=== PATIENT | male | born 1965 | race Caucasian/White ===

== ENCOUNTER 2017-06-15 18:47 | Emergency (ER) | payer OTHER ==
--- NOTE | 2017-06-15 19:59 | DIAGNOSTIC IMAGING REPORT ---
PROCEDURE: XR ANKLE 3 OR 4 VIEWS - LEFT INDICATION: TRAUMA/INJURY TECHNIQUE: Four views of the left ankle. COMPARISON: None. FINDINGS: Normal mineralization. No fractures. Ankle mortise intact. Normal osseous alignment. Mild degenerative changes at the anterior posterior tibiotalar joint and posterior to the posterior subtalar joint. Small plantar calcaneal spur. Small tibiotalar joint effusion. No suspicious soft-tissue calcification or radiodense foreign bodies. Achilles tendon appears grossly normal. Mild lateral periarticular soft tissue swelling. IMPRESSION: 1. Mild lateral soft tissue swelling and tibiotalar joint effusion. No underlying fracture.
--- NOTE | 2017-06-15 20:24 | ED NURSING NOTES ---
Clinical Report - Nurses [facility] [address] [place] [address] 06/15/2017 18:47 Patient: ELMER JASMINE TRIAGE Triage time 18:56 Jun 15 2017. Chief Complaint: INJURY TO ANKLE. INJURY TO THE LEFT ANKLE. Alert. No acute distress. SEPSIS SCREEN: Sepsis Screen. Negative (no infection suspected/documented). --19:00 Gt Samaniego R.N. 18:56 06/15/17. BP: 144/84. HR: 70. RR: 17. O2 saturation: 100%. Temp: 98.1 F. Pain level now: 08/11. --19:00 Gt Samaniego R.N. Weight: 95.2 kg stated. Height/Length: 68 inches Per Patient. BMI: 31.9. --18:58 tG Samaniego R.N. Medications Hydrochlorothiazide Oral. --19:02 Gt Samaniego R.N. Omeprazole Oral. --19:02 Gt Samaniego R.N. Niacin Oral. --19:02 Gt Samaniego R.N. Vitamin E Complex Oral. --19:03 Gt Samaniego R.N. Vitamin A Oral. --19:03 Gt Samaniego R.N. Atenolol Oral. --19:03 Gt Samaniego R.N. Atorvastatin Calcium Oral. --19:03 Gt Samaniego R.N. Allergies None. --19:03 Gt Samaniego R.N. Medication/allergy information source: the patient. --19:00 Gt Samaniego R.N. History Arrived by private vehicle. Historian: patient. Accompanied by family. This occurred today. He has had trouble walking. Treatment [place]: Ice and took ibuprofen. PAST MEDICAL HX: Tetanus status: up-to-date. Immunizations: up-to-date. SOCIAL HX: Smoker- current status unknown. Alcohol use. No drug use. No infectious disease exposure. ABUSE ASSESSMENT: No report of abuse. SELF HARM ASSESSMENT: A self harm assessment was performed. The patient answered "no" to the question "Do you have thoughts of harming or killing yourself?". FALL RISK ASSESSMENT: Fall risk assessment completed. No fall risk identified. NUTRITIONAL RISK ASSESSMENT: The nutritional risk assessment revealed no deficiencies. FUNCTIONAL ASSESSMENT: Functional assessment: no impairments noted. LEARNING NEEDS ASSESSMENT: The learning needs assessment revealed no barriers. SKIN INTEGRITY ASSESSMENT: Skin integrity risk assessment completed. No skin integrity risk identified. --19:00 Gt Samaniego R.N. PROBLEMS: Acid reflux. Elevated Cholesterol. Hypertension. --19:04 Gt Samaniego R.N. ADDITIONAL SURGERIES: no known surgeries. Interventions ID band on patient. To treatment room. --19:00 Gt Samaniego R.N. PHYSICAL ASSESSMENT Ambulatory to room. (using crutches). GENERAL / NEURO / PSYCH: Oriented X 4. Alert. Appears in no acute distress. EXTREMITIES: Capillary refill is less than 2 seconds in the extremities. Pain with weight bearing. Neuro-vascular status intact to the extremity. Left ankle: tenderness and swelling. SKIN: Skin intact. Skin is warm and dry. --19:01 Gt Samaniego R.N. NURSING PROGRESS NOTES Call light placed in reach. Side rails up x 1. Bed placed in lowest position. --19:01 Gt Samaniego R.N. ( cont to wait on rad read, STEEL WORKER called to inquire, pt updated). --19:22 Gt Samaniego R.N. 19:23 06/15/2017 Hydrocodone-APAP (Hydrocodone-Acetaminophen) PO 5/325 mg Tablets 1 tab given. Allergies verified, confirmed 5 rights and sedative warning given to the patient. --19:28 Gt Samaniego R.N. 3 inch roderick bandage applied to left ankle by nurse; distal pulses intact, sensation intact and motor function within normal limits. --20:49 Knebel, Jody, R.N. DISPOSITION / DISCHARGE Departure time: 20:48 Jun 15 2017. Condition at departure: improved. No learning barriers present. Discharge instructions provided and reviewed with the patient. Reviewed medication(s) side effects, precautions, dosing and course information. Prescription(s) given to the patient. Reviewed referral to a primary care physician for followup. The patient was discharged home and accompanied by spouse. He left the Emergency Department ambulatory and via private vehicle. Spouse driving. FALL RISK ASSESSMENT: Fall risk assessment completed. No fall risk identified. --20:48 Jody Sahu R.N. 20:47 06/15/17. BP: 123/101. HR: 58. RR: 16. O2 saturation: 94%. Pain level now: 07/11. --20:48 Jody Sahu R.N. Locked/Released at 06/15/2017 23:37 by Gt Samaniego R.N.
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
--- NOTE | 2017-06-15 20:24 | ED ORDER SUMMARY ---
..... Patient: ELMER JASMINE OrderSheet [facility] VisitID: [id number] [address] [place] [address] 52y, M Registration Date/Time: 06/15/2017 ORDER SHEET Weight: 95.2 kg (stated) Allergies: None GENERAL ORDERS: Ankle 3 or 4V Left Urgent (19:02 06/15/2017 HBivens A.R.N.P.) (Ack 19:05 AMcQuoid ER Tech1) (19:13 RFay) Cliff Wrap (20:23 06/15/2017 HBivens A.R.N.P.) (20:29 KPage-Kuchan R.N.) MEDICATION ORDERS: Hydrocodone-APAP PO 5/325 mg (NOW, HIGH ALERT MEDICATION) (19:02 06/15/2017 HBivens A.R.N.P.) (Ack 19:20 KPage-Kuchan R.N.) (19:28 KPage-Kulorien R.N.) IV FLUIDS: ORDER SHEET NOTES: [Electronically signed by Zuri PrideR.N.PMena (22:56 06/15/2017)] [Electronically signed by Gt Samaniego R.N. (23:37 06/15/2017)] [Electronically locked/signed by Gt Samaniego R.N. (23:37 06/15/2017)]
--- NOTE | 2017-06-15 20:24 | ED NURSING NOTES ---
Clinical Report - Nurses [facility] [address] [place] [address] 06/15/2017 18:47 Patient: ELMER JASMINE TRIAGE Triage time 18:56 Jun 15 2017. Chief Complaint: INJURY TO ANKLE. INJURY TO THE LEFT ANKLE. Alert. No acute distress. SEPSIS SCREEN: Sepsis Screen. Negative (no infection suspected/documented). --19:00 Gt Samaniego R.N. 18:56 06/15/17. BP: 144/84. HR: 70. RR: 17. O2 saturation: 100%. Temp: 98.1 F. Pain level now: 08/11. --19:00 Gt Samaniego R.N. Weight: 95.2 kg stated. Height/Length: 68 inches Per Patient. BMI: 31.9. --18:58 Gt Samaniego R.N. Medications Hydrochlorothiazide Oral. --19:02 Gt Samaniego R.N. Omeprazole Oral. --19:02 Gt Samaniego R.N. Niacin Oral. --19:02 Gt Samaniego R.N. Vitamin E Complex Oral. --19:03 Gt Samaniego R.N. Vitamin A Oral. --19:03 Gt Samaniego R.N. Atenolol Oral. --19:03 Gt Samaniego R.N. Atorvastatin Calcium Oral. --19:03 Gt Samaniego R.N. Allergies None. --19:03 Gt Samaniego R.N. Medication/allergy information source: the patient. --19:00 Gt Samaniego R.N. History Arrived by private vehicle. Historian: patient. Accompanied by family. This occurred today. He has had trouble walking. 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 PAST MEDICAL HX: Tetanus status: up-to-date. Immunizations: up-to-date. SOCIAL HX: Smoker- current status unknown. Alcohol use. No drug use. No infectious disease exposure. ABUSE ASSESSMENT: No report of abuse. SELF HARM ASSESSMENT: A self harm assessment was performed. The patient answered "no" to the question "Do you have thoughts of harming or killing yourself?". FALL RISK ASSESSMENT: Fall risk assessment completed. No fall risk identified. NUTRITIONAL RISK ASSESSMENT: The nutritional risk assessment revealed no deficiencies. FUNCTIONAL ASSESSMENT: Functional assessment: no impairments noted. LEARNING NEEDS ASSESSMENT: The learning needs assessment revealed no barriers. SKIN INTEGRITY ASSESSMENT: Skin integrity risk assessment completed. No skin integrity risk identified. --19:00 Gt Samaniego R.N. PROBLEMS: Acid reflux. Elevated Cholesterol. Hypertension. --19:04 Gt Samaniego R.N. ADDITIONAL SURGERIES: no known surgeries. Interventions ID band on patient. To treatment room. --19:00 Gt Samaniego R.N. PHYSICAL ASSESSMENT Ambulatory to room. (using crutches). GENERAL / NEURO / PSYCH: Oriented X 4. Alert. Appears in no acute distress. EXTREMITIES: Capillary refill is less than 2 seconds in the extremities. Pain with weight bearing. Neuro-vascular status intact to the extremity. Left ankle: tenderness and swelling. SKIN: Skin intact. Skin is warm and dry. --19:01 Gt Samaniego R.N. NURSING PROGRESS NOTES Call light placed in reach. Side rails up x 1. Bed placed in lowest position. --19:01 Gt Samaniego R.N. ( cont to wait on rad read, BIRD TENDER called to inquire, pt updated). --19:22 Gt Samaniego R.N. 19:23 06/15/2017 Hydrocodone-APAP (Hydrocodone-Acetaminophen) PO 5/325 mg Tablets 1 tab given. Allergies verified, confirmed 5 rights and sedative warning given to the patient. --19:28 Gt Samaniego R.N. 3 inch roderick bandage applied to left ankle by nurse; distal pulses intact, sensation intact and motor function within normal limits. --20:49 Knebel, Jody, R.N. DISPOSITION / DISCHARGE Departure time: 20:48 Jun 15 2017. Condition at departure: improved. No learning barriers present. Discharge instructions provided and reviewed with the patient. Reviewed medication(s) side effects, precautions, dosing and course information. Prescription(s) given to the patient. Reviewed referral to a primary care physician for followup. The patient was discharged home and accompanied by spouse. He left the Emergency Department ambulatory and via private vehicle. Spouse driving. FALL RISK ASSESSMENT: Fall risk assessment completed. No fall risk identified. --20:48 Jody Sahu R.N. 20:47 06/15/17. BP: 123/101. HR: 58. RR: 16. O2 saturation: 94%. Pain level now: 07/11. --20:48 Jody Sahu R.N. Locked/Released at 06/15/2017 23:37 by Gt Samaniego R.N.
--- NOTE | 2017-06-15 20:24 | ED ORDER SUMMARY ---
..... Patient: ELMER JASMINE OrderSheet [facility] VisitID: [id number] [address] [place] [address] 52y, M Registration Date/Time: 06/15/2017 ORDER SHEET Weight: 95.2 kg (stated) Allergies: None GENERAL ORDERS: Ankle 3 or 4V Left Urgent (19:02 06/15/2017 HBivens A.R.N.P.) (Ack 19:05 AMcQuoid ER Tech1) (19:13 RFay) Cliff Wrap (20:23 06/15/2017 HBivens A.R.N.P.) (20:29 KPage-Kuchan R.N.) MEDICATION ORDERS: Hydrocodone-APAP PO 5/325 mg (NOW, HIGH ALERT MEDICATION) (19:02 06/15/2017 HBivens A.R.N.P.) (Ack 19:20 KPage-Kuchan R.N.) (19:28 KPage-Kulorien R.N.) IV FLUIDS: ORDER SHEET NOTES: [Electronically signed by Zuri PrideR.N.PMena (22:56 06/15/2017)] [Electronically signed by Gt Samaniego R.N. (23:37 06/15/2017)] [Electronically locked/signed by Gt Samaniego R.N. (23:37 06/15/2017)]
--- NOTE | 2017-06-15 23:37 | ED MAR SUMMARY ---
..... Medication Administration Record [facility] [address] [place] [address] Patient: ELMER JASMINE Visit ID: [id number] 52y, M Weight: 95.2 kg Height/Length: 68 in BMI: 31.9 ALLERGIES: None Given 19:23 06/15/2017 Gt Samaniego R.N. Medication Administered: HYDROCODONE-APAP [PO] (HYDROCODONE-ACETAMINOPHEN), Dose: 1 tab 5/325 mg Tablets PO. Medication Ordered: Hydrocodone-APAP PO 5/325 mg (NOW, HIGH ALERT MEDICATION).
--- NOTE | 2017-06-15 23:37 | ED MED RECONCILIATION SUMMARY ---
Patient: ELMER JASMINE Medication Reconciliation Report [facility] VisitID: [id number] [address] [place] [address] 52y, M Registration Date/Time: 06/15/2017 Weight: 95.2 kg Height/Length: 68 in. BMI: 31.9 ALLERGIES: None The patient's Home Medications are listed below: THE FOLLOWING MEDICATIONS NEED TO BE RECONCILED: Atenolol Oral Atorvastatin Calcium Oral Hydrochlorothiazide Oral Niacin Oral Omeprazole Oral Vitamin A Oral Vitamin E Complex Oral The source(s) of the original Home Medication information: patient The following Medications were given to the patient in the Emergency Department: Hydrocodone-APAP [PO] PO 1 tab, administered: 06/15/2017 7:23:00 PM The following Medications were prescribed to the patient: Ultram 50 mg tablets: take 1-2 orally every 6 hours as needed for pain. Dispense twenty (20). No refills. Substitution is permissible. -- Zuri Pride A.R.N.P.
--- NOTE | 2017-06-15 23:37 | ED MED RECONCILIATION SUMMARY ---
Patient: ELMER JASMINE Medication Reconciliation Report [facility] VisitID: [id number] [address] [place] [address] 52y, M Registration Date/Time: 06/15/2017 Weight: 95.2 kg Height/Length: 68 in. BMI: 31.9 ALLERGIES: None The patient's Home Medications are listed below: THE FOLLOWING MEDICATIONS NEED TO BE RECONCILED: Atenolol Oral Atorvastatin Calcium Oral Hydrochlorothiazide Oral Niacin Oral Omeprazole Oral Vitamin A Oral Vitamin E Complex Oral The source(s) of the original Home Medication information: patient The following Medications were given to the patient in the Emergency Department: Hydrocodone-APAP [PO] PO 1 tab, administered: 06/15/2017 7:23:00 PM The following Medications were prescribed to the patient: Ultram 50 mg tablets: take 1-2 orally every 6 hours as needed for pain. Dispense twenty (20). No refills. Substitution is permissible. -- Zuri Pride A.R.N.P.
--- NOTE | 2017-06-15 23:37 | ED MAR SUMMARY ---
..... Medication Administration Record [facility] [address] [place] [address] Patient: ELMER JASMINE Visit ID: [id number] 52y, M Weight: 95.2 kg Height/Length: 68 in BMI: 31.9 ALLERGIES: None Given 19:23 06/15/2017 Gt Samaniego R.N. Medication Administered: HYDROCODONE-APAP [PO] (HYDROCODONE-ACETAMINOPHEN), Dose: 1 tab 5/325 mg Tablets PO. Medication Ordered: Hydrocodone-APAP PO 5/325 mg (NOW, HIGH ALERT MEDICATION).
--- NOTE | 2017-06-15 23:37 | ED DISCHARGE INSTRUCTIONS ---
Patient: ELMER JASMINE General Instructions [facility] VisitID: [id number] [place] [address] 52y, M Registration Date/Time: 06/15/2017 Sprain of the tibiofibular ligament of the left ankle. INSTRUCTIONS Apply ice for 20 minutes four times a day for two days until better. Don't apply ice directly to skin. Wear elastic wrap (Cliff wrap) as directed for one weeks until better. Elevate affected areas above chest level for two days until better. Do not work today, tomorrow, for two days. Warnings: GENERAL WARNINGS: Return or contact your physician immediately if your condition worsens or changes unexpectedly, if not improving as expected, or if other problems arise. Specifically return if problem worsens. Prescription Medications: Ultram 50 mg tablets: take 1-2 orally every 6 hours as needed for pain. Dispense twenty (20). No refills. Substitution is permissible. Follow-up: Follow up with your doctor in about one week as needed. Call for an appointment. Summary of care provided to patient and family. Understanding of the discharge instructions verbalized by patient. ADDITIONAL INFORMATION Sprain, Ankle,With X-Ray A sprain is an injury to the ligaments or capsule that holds a joint together. There are no broken bones. Most sprains take from four to six weeks to heal. If the ligament is completely torn (severe sprain), it can take several months to recover. Mild to moderate sprains may be treated with an elastic wrap or an in-shoe splint to provide support and prevent re-injury. A mild sprain may not require any additional support. A severe sprain may require surgery to repair. Home care The following guidelines will help you care for your injury at home: Stay off the injured leg as much as possible until you can walk on it without pain. If you have a lot of pain with walking, crutches or a walker may be prescribed. (These can be rented or purchased at many pharmacies and surgical or orthopedic supply stores). Follow your doctor's advice regarding when to begin bearing weight on that leg. Keep your leg elevated to reduce pain and swelling. When sleeping, place a pillow under the injured leg. When sitting, support the injured leg so it is level with your waist. This is very important during the first 48 hours. Apply an ice pack (ice cubes in a plastic bag, wrapped in a towel) over the injured area for 20 minutes every 12 hours the first day. You can place the ice pack directly over the splint/cast. If you were given a boot, open it to apply the ice pack. Continue with ice packs 34 times a day for the next two days, then as needed for the relief of pain and swelling. You may use acetaminophen or ibuprofen to control pain, unless another pain medicine was prescribed. If you have chronic liver or kidney disease or ever had a stomach ulcer or GI bleeding, talk with your doctor before using these medicines. You may return to sports after healing, when you can run without pain. A sprained ankle is at risk for re-injury during the first six weeks. During that time, protect your ankle with an in-shoe splint that prevents tilting of your ankle from side to side. This is very important if you do active work or play sports during that time. Follow-up care Any X-rays you had today dont show any broken bones, breaks, or fractures. Sometimes fractures dont show up on the first X-ray. Bruises and sprains can sometimes hurt as much as a fracture. These injuries can take time to heal completely. If your symptoms dont improve or they get worse, talk with your doctor. You may need a repeat X-ray. When to seek medical care Get prompt medical attention if any of the following occur: The plaster cast or splint gets wet or soft The fiberglass cast or splint gets wet and does not dry for 24 hours Pain or swelling increases, or redness appears Toes become cold, blue, numb or tingly Re-injure your ankle Cliff Wrap An "Cliff Bandage" refers to any elastic bandage wrap (2-6" wide). This is used to apply support and compression to an arm or leg. It will help prevent or reduce swelling also. When applying the bandage, it should not be stretched too tightly. A tight Cliff Wrap will reduce circulation and cause tingling or numbness in the hand or foot. It may increase the pain under the bandage. If you get these symptoms, remove the wrap and rest the limb. Symptoms should go away within 1-2 hours. Once symptoms go away, reapply the bandage with less stretch. If symptoms do not go away after 1-2 hours with the bandage off, call your doctor or return to this facility promptly. Tramadol Hydrochloride Oral tablet What is this medicine? TRAMADOL (TRA ma dole) is a pain reliever. It is used to treat moderate to severe pain in adults. How should I use this medicine? Take this medicine by mouth with a full glass of water. Follow the directions on the prescription label. If the medicine upsets your stomach, take it with food or milk. Do not take more medicine than you are told to take. Talk to your adoption agent regarding the use of this medicine in children. Special care may be needed. What side effects may I notice from receiving this medicine? Side effects that you should report to your doctor or health medical care evaluation specialist as soon as possible: allergic reactions like skin rash, itching or hives, swelling of the face, lips, or tongue breathing difficulties, wheezing confusion itching light headedness or fainting spells redness, blistering, peeling or loosening of the skin, including inside the mouth seizures Side effects that usually do not require medical attention (report to your doctor or health medical care evaluation specialist if they continue or are bothersome): constipation dizziness drowsiness headache nausea, vomiting What may interact with this medicine? Do not take this medicine with any of the following medications: MAOIs like Carbex, Eldepryl, Marplan, Nardil, and Parnate This medicine may also interact with the following medications: alcohol or medicines that contain alcohol antihistamines benzodiazepines bupropion carbamazepine or oxcarbazepine clozapine cyclobenzaprine digoxin furazolidone linezolid medicines for depression, anxiety, or psychotic disturbances medicines for migraine headache like almotriptan, eletriptan, frovatriptan, naratriptan, rizatriptan, sumatriptan, zolmitriptan medicines for pain like pentazocine, buprenorphine, butorphanol, meperidine, nalbuphine, and propoxyphene medicines for sleep muscle relaxants naltrexone phenobarbital phenothiazines like perphenazine, thioridazine, chlorpromazine, mesoridazine, fluphenazine, prochlorperazine, promazine, and trifluoperazine procarbazine warfarin What if I miss a dose? If you miss a dose, take it as soon as you can. If it is almost time for your next dose, take only that dose. Do not take double or extra doses. Where should I keep my medicine? Keep out of the reach of children. Store at room temperature between 15 and 30 degrees C (59 and 86 degrees F). Keep container tightly closed. Throw away any unused medicine after the expiration date. What should I tell my health care provider before I take this medicine? They need to know if you have any of these conditions: brain tumor depression drug abuse or addiction head injury if you frequently drink alcohol containing drinks kidney disease or trouble passing urine liver disease lung disease, asthma, or breathing problems seizures or epilepsy suicidal thoughts, plans, or attempt; a previous suicide attempt by you or a family member an unusual or allergic reaction to tramadol, codeine, other medicines, foods, dyes, or preservatives or trying to get breast-feeding What should I watch for while using this medicine? Tell your doctor or health medical care evaluation specialist if your pain does not go away, if it gets worse, or if you have new or a different type of pain. You may develop tolerance to the medicine. Tolerance means that you will need a higher dose of the medicine for pain relief. Tolerance is normal and is expected if you take this medicine for a long time. Do not suddenly stop taking your medicine because you may develop a severe reaction. Your body becomes used to the medicine. This does NOT mean you are addicted. Addiction is a behavior related to getting and using a drug for a non-medical reason. If you have pain, you have a medical reason to take pain medicine. Your doctor will tell you how much medicine to take. If your doctor wants you to stop the medicine, the dose will be slowly lowered over time to avoid any side effects. You may get drowsy or dizzy. Do not drive, use machinery, or do anything that needs mental alertness until you know how this medicine affects you. Do not stand or sit up quickly, especially if you are an older patient. This reduces the risk of dizzy or fainting spells. Alcohol can increase or decrease the effects of this medicine. Avoid alcoholic drinks. You may have constipation. Try to have a bowel movement at least every 2 to 3 days. If you do not have a bowel movement for 3 days, call your doctor or health medical care evaluation specialist. Your mouth may get dry. Chewing sugarless gum or sucking hard candy, and drinking plenty of water may help. Contact your doctor if the problem does not go away or is severe. You have been given the following additional information: Sprain, Ankle, With X-Ray Cliff Wrap Tramadol Hydrochloride Oral tablet Do not work today, tomorrow, for two days. (Electronically signed by Zuri Pride A.R.N.P. 06/15/2017 22:56)
== END 2017-06-15 20:45 | disposition home or self-care (01) ==
LOC: ED SRH 18:47
DX: S93.432A Sprain of tibiofibular ligament of left ankle, initial encounter (principal); W22.8XXA Striking against or struck by other objects, initial encounter; Y93.19 Activity, other involving water and watercraft; Y92.9 Unspecified place or not applicable; Y99.9 Unspecified external cause status; K21.9 Gastro-esophageal reflux disease without esophagitis; I10 Essential (primary) hypertension; Z79.899 Other long term (current) drug therapy